=== PATIENT | male | born 1940 | race Caucasian/White ===

== ENCOUNTER → 2018-11-18 16:42 | Outpatient (CLI) | payer MEDICARE, BC, SELFPAY ==
--- NOTE | 2018-11-18 | DI.RAD.S_ITS ---
PROCEDURE: XR LUMBAR SPINE 2-3V INDICATIONS: LOW BACK PAIN TECHNIQUE: 3 views of the lumbar spine were acquired. COMPARISON: None. FINDINGS: Bones: 5 [id number] vertebrae are present. There is normal bony alignment. No vertebral body compression fractures. No suspicious bony lesions. Degenerative disc disease and facet osteoarthritis is moderately severe to severe at L5-S1 and slightly less prominent at L4-5. Grade one anterolisthesis of L4 on L5 is associated. Soft tissues: Overlying bowel gas pattern is normal. No suspicious soft tissue calcifications. IMPRESSION: No acute disease, but there is moderately severe to severe L5-S1 degenerative disc disease and facet osteoarthritis with additional slightly less degenerative change at L4-5, to the degree that significant spinal and foraminal stenosis would be expected at these 2 levels. Dictated by: Fabian Isidro M.D. on 11/19/2018 at 8:14 Approved by: Fabian Isidro M.D. on 11/19/2018 at 8:16
--- NOTE | 2018-11-18 | DI.RAD.S_ITS ---
PROCEDURE: XR HIP W PEL IF DONE RT 2V INDICATIONS: RIGHT HIP PAIN TECHNIQUE: AP pelvis with lateral view(s) of the right hip. COMPARISON: None. FINDINGS: Bones: No fractures or dislocations. Pelvic ring appears intact. No suspicious bony lesions. Soft tissues: The visualized bowel gas pattern is normal. No suspicious soft tissue calcifications. IMPRESSION: Right greater than left mild to moderate degenerative hip joint osteoarthritis, no trauma found. Dictated by: Fabian Isidro M.D. on 11/19/2018 at 8:16 Approved by: Fabian Isidro M.D. on 11/19/2018 at 8:18
== END ==
PROVIDERS: Visit Provider Internal Medicine
DX: M25.551 Pain in right hip (principal); M16.0 Bilateral primary osteoarthritis of hip; M54.5 Low back pain; M51.37 Other intervertebral disc degeneration, lumbosacral region; M47.817 Spondylosis without myelopathy or radiculopathy, lumbosacral region; M47.816 Spondylosis without myelopathy or radiculopathy, lumbar region
CPT/HCPCS: 72100; 73502

== ENCOUNTER → 2018-11-30 17:59 | Outpatient (CLI) | payer MEDICARE, BC, SELFPAY ==
--- NOTE | 2018-11-30 18:02 | DI.MRI.S_ITS ---
PROCEDURE: MR LUMBAR SPINE WO CON INDICATIONS: LOW BACK PAIN TECHNIQUE: Noncontrast sagittal T1 spin echo and T2 fast echo, sagittal STIR, axial T1 and T2 fast spin echo through the lumbar spine. In cases with scoliosis, additional coronal T2 fast spin echo may be performed. COMPARISON: [facility], CR, XR LUMBAR SPINE 2-3V, 11/18/2018, 16:46. [facility], MR, L-SPINE WITHOUT CONTRAST, 11/09/2012, 11:35. FINDINGS: Image quality: Excellent. Alignment and Curvature: Chronic minimal degenerative retrolisthesis of L5 on S1 is stable. Since the prior study, degenerative anterolisthesis of L4 on L5 has developed, measuring 8 mm. The other vertebral bodies are normally aligned. Bone Marrow: Marrow is of normal overall signal. No acute vertebral body compression fractures. Spinal Cord: Conus medullaris terminates at the L1 level. Visualized cord demonstrates normal signal and size. Paraspinous Soft Tissues: No paravertebral masses. T12-L1: No canal stenosis or foraminal stenosis. Facet joints are unremarkable. L1-L2: Severe disc height loss. Mild diffuse disc bulge. No canal stenosis. Mild bilateral foraminal stenosis. L2-L3: Diffuse disc bulge and facet and ligament hypertrophy and epidural lipomatosis results in moderate canal stenosis. There is mild bilateral foraminal stenosis. L3-L4: A moderate central posterior disc extrusion has developed. This disc protrusion and facet and ligament hypertrophy and epidural lipomatosis results in severe canal stenosis. There is mild right foraminal narrowing and moderate left foraminal narrowing with flattening of the left L3 nerve root sleeve. L4-L5: Bilateral hemilaminectomies. Interval development of grade 1 anterolisthesis of L4 on L5 measuring 8 mm. Unroofing of the L4-L5 disc with posterior disc protrusion. Marked facet hypertrophy. Moderate to severe canal stenosis. Moderate bilateral foraminal narrowing with flattening of the bilateral L4 nerve root sleeves. L5-S1: Posterior laminectomy. No canal stenosis. Bilateral facet hypertrophy. Mild to moderate bilateral foraminal narrowing. IMPRESSION: 1. Evidence of bilateral L4-L5 hemilaminectomies with an intact spinous process. Interval development of 8 mm of anterolisthesis of L4 on L5. Moderate canal stenosis and moderate bilateral foraminal stenosis at this level. There is marked facet hypertrophy at this level. 2. Progression of multifactorial canal stenosis at L2-L3, now moderate, secondary to disc bulge, facet and ligament hypertrophy, and epidural lipomatosis. 3. Progression of multifactorial canal stenosis at L3-4, now severe, secondary to interval development of a central posterior disc protrusion and the presence of facet and ligament hypertrophy, and worsening epidural lipomatosis. There is moderate bilateral foraminal stenosis at this level. Dictated by: Esau Mendenhall M.D. on 12/01/2018 at 13:19 Approved by: Esau Mendenhall M.D. on 12/01/2018 at 13:47
== END ==
PROVIDERS: PCP Orthopaedic Surgery Orthopaedic Trauma; Visit Provider Internal Medicine
DX: M48.061 Spinal stenosis, lumbar region without neurogenic claudication (principal); M51.26 Other intervertebral disc displacement, lumbar region; M43.16 Spondylolisthesis, lumbar region; E88.2 Lipomatosis, not elsewhere classified
CPT/HCPCS: 72148

== ENCOUNTER → 2019-12-09 07:52 | Outpatient (CLI) | payer MEDICARE, BC, SELFPAY ==
[2019-12-09 09:40] LABS: Cholesterol 225 mg/dL (140-199); HDL Cholesterol 54 mg/dL (40-60); LDL Cholesterol Calculated 150 mg/dL (<100); Triglycerides 103 mg/dL (35-150)
== END ==
PROVIDERS: PCP Internal Medicine; Referring Provider Internal Medicine; Visit Provider Internal Medicine
DX: E78.00 Pure hypercholesterolemia, unspecified (principal)
CPT/HCPCS: 36415; 80061

== ENCOUNTER → 2020-04-04 16:39 | Outpatient (CLI) | payer MEDICARE, BC, SELFPAY ==
[2020-04-04] MEDS: COVID-19 VACC #1, MRNA(MOD) 100 MCG/0.5 ML VIAL IM (16:46)
== END ==
PROVIDERS: PCP Internal Medicine; Visit Provider Internal Medicine
DX: Z23 Encounter for immunization (principal)
CPT/HCPCS: 0011A; 91301

== ENCOUNTER → 2020-05-03 14:17 | Outpatient (CLI) | payer MEDICARE, BC, SELFPAY ==
[2020-05-03] MEDS: COVID-19 VACC #2, MRNA(MOD) 100 MCG/0.5 ML VIAL IM (14:24)
== END ==
PROVIDERS: PCP Internal Medicine; Visit Provider Internal Medicine
DX: Z23 Encounter for immunization (principal)
CPT/HCPCS: 0012A; 91301

== ENCOUNTER → 2021-05-17 11:50 | Outpatient (CLI) | payer MEDICARE, BC, SELFPAY ==
--- NOTE | 2021-05-17 | DI.RAD.S_ITS ---
PROCEDURE: XR HIP W PEL IF DONE RT 2V INDICATIONS: RIGHT LEG AND HIP PAIN TECHNIQUE: AP pelvis with lateral view(s) of the right hip(s). COMPARISON: [facility], , XR HIP W PEL IF DONE RT 2V, 11/18/2018, 16:46. FINDINGS: Bones: No fractures or dislocations. Pelvic ring appears intact. No suspicious bony lesions. There is severe narrowing of the right hip joint with near bone on bone contact, subchondral sclerosis and cystic change. Periarticular osteophyte formation is present. Mild left hip joint degeneration. Lower lumbar spine fixation hardware incompletely visualized. Soft tissues: The visualized bowel gas pattern is normal. No suspicious soft tissue calcifications. IMPRESSION: Severe progressive asymmetric right hip joint degeneration. Dictated by: Forest Carrillo [facility] Interpreted: Alexy Bell MD on 05/17/2021 at 15:10 Transcribed by: CARRI on 05/17/2021 at 15:11 Approved by: Alexy Bell M.D. on 05/17/2021 at 15:53
== END ==
PROVIDERS: PCP Internal Medicine; Referring Provider Internal Medicine; Visit Provider Internal Medicine
DX: M25.551 Pain in right hip (principal); M79.604 Pain in right leg; M16.11 Unilateral primary osteoarthritis, right hip
CPT/HCPCS: 73502

== ENCOUNTER → 2024-03-30 17:01 | Outpatient (CLI) | payer MEDICARE, BC, SELFPAY ==
--- NOTE | 2024-03-30 17:04 | DI.MRI.S_ITS ---
PROCEDURE: MR CERVICAL SPINE WO CON INDICATIONS: NECK PAIN,CERVICAL RADICULOPATHY TECHNIQUE: Noncontrast sagittal T1 spin echo and T2 fast spin echo, sagittal STIR, foraminal oblique sagittal T2 fast spin echo, and axial gradient echo or T2 fast spin echo through the cervical spine. COMPARISON: None. FINDINGS: Image quality: Excellent. Alignment and Curvature: There is minimal anterolisthesis at C5-C6. There is minimal retrolisthesis at C6-C7. Bone Marrow: Marrow demonstrates normal overall signal. Spinal Cord: Visualized spinal cord has normal size and signal. No cerebellar tonsillar herniation. Paraspinous Soft Tissues: No paravertebral masses. Prevertebral soft tissues are normal in thickness. C2-C3: No significant abnormality is seen. C3-C4: Mild loss of disc height is seen. Loss of disc signal is seen. A mild degree of generalized disc osteophyte complex is seen. Moderate facet joint hypertrophy is seen. There is moderate right-sided and at least moderate left-sided neural foraminal narrowing. Mild central canal narrowing is seen. C4-C5: The disc height is well-preserved. Loss of disc signal is seen at this level. A mild degree of generalized disc osteophyte complex is seen. Moderate facet joint hypertrophy is seen. Moderate to severe bilateral neural foraminal narrowing can be seen. No significant central canal narrowing is seen. C5-C6: Mild loss of disc height is seen. Loss of disc signal is seen. A mild degree of generalized disc osteophyte complex is seen. Mild to moderate facet hypertrophy can be seen. There is at least moderate bilateral neural foraminal narrowing seen. Mild to moderate central canal narrowing is seen, with minimal mass effect upon the ventral spinal cord. C6-C7: Moderate loss of disc height is seen. Loss of disc signal is seen. Reactive marrow endplate changes are seen, which demonstrate mixed T1 weighted and T2-weighted signal, and are attributed to a combination of edema and fatty metaplasia (Modic type I and Modic type II changes). Moderate disc osteophyte complex is seen, with a central disc osteophyte protrusion. Uncovertebral joint hypertrophy is seen at this level. At least moderate facet hypertrophy is seen. There is moderate to severe bilateral neural foraminal narrowing seen. Mild to moderate central canal narrowing is seen. C7-T1: No significant abnormality is seen. IMPRESSION: Multiple levels of cervical spine degenerative change can be seen, which are worst at the C6-C7 level. Dictated by: Martín Pichardo M.D. on 03/31/2024 at 13:52 Approved by: Martín Pichardo M.D. on 03/31/2024 at 13:59
== END ==
PROVIDERS: Referring Provider Physician Assistant; Visit Provider Physician Assistant
DX: M47.22 Other spondylosis with radiculopathy, cervical region (principal); M54.2 Cervicalgia
CPT/HCPCS: 72141